=== PATIENT | male | born 1960 | race Caucasian/White ===

== ENCOUNTER 2020-11-09 00:55 | Inpatient (IN) | payer BC ==
[~2020-11-09] VITALS: Ht 182.9 cm; Wt 129.3 kg
[2020-11-09 02:20] LABS: HEMOGLOBIN 15.1 gm/dl (14.0-17.5); RED BLOOD COUNT 4.91 M/UL (4.20-5.50); WHITE BLOOD COUNT 7.4 K/UL (4.5-11.0)
[2020-11-09 02:50] LABS: BUN/CREATININE RATIO 14 (0-10)
[2020-11-09] MEDS ORDERED: HYDROCHLOROTHIA50 MG PO (10:10)
[2020-11-10 06:18] LABS: HEMOGLOBIN 14.3 gm/dl (14.0-17.5); RED BLOOD COUNT 4.65 M/UL (4.20-5.50)
[2020-11-10 06:19] LABS: WHITE BLOOD COUNT 10.4 K/UL (4.5-11.0)
[2020-11-12 05:36] LABS: HEMOGLOBIN 13.4 gm/dl (14.0-17.5); RED BLOOD COUNT 4.4 M/UL (4.20-5.50); WHITE BLOOD COUNT 12.9 K/UL (4.5-11.0)
[2020-11-12 05:50] LABS: BUN/CREATININE RATIO 33 (0-10)
[2020-11-13 07:18] LABS: HEMOGLOBIN 14.9 gm/dl (14.0-17.5); WHITE BLOOD COUNT 12.9 K/UL (4.5-11.0)
[2020-11-13 07:26] LABS: RED BLOOD COUNT 4.9 M/UL (4.20-5.50)
[2020-11-13 07:39] LABS: BUN/CREATININE RATIO 26 (0-10)
[2020-11-13] MEDS ORDERED: PROTONIX 40 MG40 M1 PO (10:02)
[2020-11-13] MEDS ORDERED: ZITHROMAX500 MG PO (10:02)
[2020-11-13] MEDS ORDERED: ZINC SULFATE50 MG PO (10:02)
[2020-11-13] MEDS ORDERED: OMNICEF 300 MG300 MG PO (10:02)
[2020-11-13] MEDS ORDERED: DEXAMETHASONE2 MG PO ×2 (13:44)
== END 2020-11-13 12:24 | disposition home or self-care (01) | DRG 177 ==
LOC: ER1 00:55 → CDU 04:08 → M/S 04:08
PROVIDERS: Internal Medicine; Physician Assistant; ADMIT Internal Medicine
PROC: XW033E5 Introduction of Remdesivir Anti-infective into Peripheral Vein, Percutaneous Approach, New Technology Group 5 (ICD-10-PCS; principal; 2020-11-09)
PROC: 3E0333Z Introduction of Anti-inflammatory into Peripheral Vein, Percutaneous Approach (ICD-10-PCS; 2020-11-09)
DX: U07.1 COVID-19 (principal); J12.82 Pneumonia due to coronavirus disease 2019; J96.01 Acute respiratory failure with hypoxia; N17.0 Acute kidney failure with tubular necrosis; E87.3 Alkalosis; E66.01 Morbid (severe) obesity due to excess calories; I12.9 Hypertensive chronic kidney disease with stage 1 through stage 4 chronic kidney disease, or unspecified chronic kidney disease; N18.30 Chronic kidney disease, stage 3 unspecified; E87.6 Hypokalemia; Z79.899 Other long term (current) drug therapy; Z68.38 Body mass index [BMI] 38.0-38.9, adult
CPT/HCPCS: 36415; 36600; 71045; 80048; 80053; 81001; 82436; 82550; 82553; 82803; 83735; 83874; 83880; 84100; 84133; 84300; 84439; 84443; 84484; 84550; 85025; 86140; 94640; 94760; 96374; 99285; J0456; J0696; J1100; J1644; J2543; J3480; J7030; J7040; U0002